=== PATIENT | male | born 1980 | race Caucasian/White ===

== ENCOUNTER 2017-01-27 08:59 | Emergency (ER) | payer OTHER ==
[~2017-01-27] VITALS: Ht 180.3 cm; Wt 86.2 kg
[2017-01-27 09:15] VITALS: BP 140/66
--- NOTE | 2017-01-27 09:56 | ED.ADGEN ---
Past Medical History Past Medical History: Other Additional Past Medical Histor: back pain Past Surgical History: Other Additional Past Surgical Histo: Lt shoulder, RLE Alcohol Use: Occasionally Drug Use: None Adult General Chief Complaint Chief Complaint: BACK PAIN OR INJURY HPI HPI Patient is a 36 year old man, with history of chronic low back pain after an injury in high school, who presents to the emergency department with a complaint of exacerbation of his lower back pain, with radicular symptoms into his right lower extremity. Patient states that he was at a baseball game several days ago, at that time he was seated for several hours, and when he stood up he was experiencing sharp shooting pains from his back down to his right lower extremity, along with some numbness and tingling. He denies any weakness, denies any difficult with bowel or bladder control, any chest pain or shortness of breath, any fevers or chills, any urinary complaints, any new injuries. Patient states that he was seen at his primary care provider's office yesterday, at that time he was prescribed hydrocodone and cyclobenzaprine, he states he has not taken his medications today as they are not effective. He states that he is currently being scheduled for an MRI, with plan to follow-up with Dr. Atkinson of neurosurgery who he has seen previously for additional evaluation. Review of Systems Review of Systems Constitutional: Denies fever or chills. [] Eyes: Denies change in visual acuity. [] HENT: Denies nasal congestion or sore throat. [] Respiratory: Denies cough or shortness of breath. [] Cardiovascular: Denies chest pain or edema. [] GI: Denies abdominal pain, nausea, vomiting, bloody stools or diarrhea. [] : Denies dysuria. [] Musculoskeletal: Complaining of lower back pain, specifically in the right side radiating to the right lower extremity. Integument: Denies rash. [] Neurologic: Denies headache, focal weakness or sensory changes. [] Endocrine: Denies polyuria or polydipsia. [] Lymphatic: Denies swollen glands. [] Psychiatric: Denies depression or anxiety. [] Current Medications Current Medications Current Medications Medications (Trade) Dose Ordered Sig/Marni Start Time Stop Time Status Last Admin Dose Admin Diazepam (Valium) 10 mg 1X ONCE 01/27/17 10:00 01/27/17 10:01 DC 01/27/17 10:00 10 MG Ketorolac Tromethamine (Toradol) 30 mg 1X ONCE 01/27/17 10:00 01/27/17 10:01 DC 01/27/17 10:00 30 MG Allergies Allergies Allergies Coded Allergies Type Severity Reaction Last Updated Verified No Known Drug Allergies 01/27/17 No Physical Exam Physical Exam Constitutional: Well developed, well nourished, no acute distress, non-toxic appearance. [] HENT: Normocephalic, atraumatic, bilateral external ears normal, oropharynx moist, no oral exudates, nose normal. [] Eyes: PERRLA, EOMI, conjunctiva normal, no discharge. [] Neck: Normal range of motion, no tenderness, supple, no stridor. [] Cardiovascular:Heart rate regular rhythm, no murmur, S1, S2, rubs or gallops. [] Lungs & Thorax: Bilateral breath sounds clear to auscultation, no wheezing, rhonchi, rales. No chest crepitus or tenderness. [] Abdomen: Bowel sounds normal, soft, no tenderness, no rebound, no guarding, no masses, no pulsatile masses. [] Skin: Warm, dry, no erythema, no rash. [] Back: No midline tenderness, no step-offs or deformities, patient with some tissue tension noted in the right sided paraspinal muscles the lumbar spine, with tenderness palpation of the piriformis region, reproducing symptoms radiating down into the right lower extremity, no CVA tenderness. [] Extremities: No tenderness, no cyanosis, no clubbing, ROM intact, no edema. [] Neurologic: Alert and oriented X 3, normal motor function, complaining of diminished sensation in the right lower extremity, exiting down to the foot in the lateral aspect, no skin changes noted, full range of motion, full strength, no focal deficits noted. [] Psychologic: Affect normal, judgement normal, mood normal. [] Current Patient Data Vital Signs Vital Signs Date Time Temp Pulse Resp B/P (MAP) Pulse Ox O2 Delivery O2 Flow Rate FiO2 01/27/17 09:15 97.9 75 18 100 Room Air 97.9 Lab Values Laboratory Tests Test 01/27/17 09:25 Urine Collection Type Unknown Urine Color Yellow Urine Clarity Clear Urine pH 5.5 Urine Specific [place] 1.020 Urine Protein Negative mg/dL (NEG-TRACE) Urine Glucose (UA) Negative mg/dL (NEG) Urine Ketones (Stick) Negative mg/dL (NEG) Urine Blood Negative (NEG) Urine Nitrite Negative (NEG) Urine Bilirubin Negative (NEG) Urine Urobilinogen Dipstick 0.2 mg/dL (0.2 mg/dL) Urine Leukocyte Esterase Negative (NEG) Urine RBC 0 /HPF (0-2) Urine WBC Occ /HPF (0-4) Urine Squamous Epithelial Cells Few /LPF Urine Bacteria 0 /HPF (0-FEW) Urine Mucus Mod /LPF EKG EKG Not indicated. [] Radiology/Procedures Radiology/Procedures Not indicated. [] Course & Med Decision Making Course & Med Decision Making Pertinent Labs and Imaging studies reviewed. (See chart for details) Patient with normal neurologic examination, without recent injury, no fevers or other concerning history, no indication for additional imaging at this time. He is currently being scheduled for an outpatient MRI of his primary care provider. I did offer the patient injection of Toradol and Valium in the emergency department to treat muscle spasm and pain, has not taken any medication at home prior to coming to the ED at this time. I did contact Dr. Atkinson's office, and spoke with Rajendra's nurse. Reviewed the patient's presentation and history. She was able to offer an appointment for February 07 1:45 PM in the afternoon for prompt follow-up. She is aware the patient is currently being scheduled for an MRI, request the patient contact the office after discharge to receive additional information pertaining to scheduling the appointment and obtaining necessary imaging and materials prior to his visit. Patient states he is feeling better, and states he is ready to go home. Patient ambulating without difficulty in the emergency department. Patient does have medications at home for pain, cyclobenzaprine, and hydrocodone, instructed to use his medications as directed by his primary care provider, also given clear and detailed return instructions with which he voiced understanding and agreement. Patient discharged home in stable condition with plan as above. Dragon Disclaimer Dragon Disclaimer This electronic medical record was generated, in whole or in part, using a voice recognition dictation system. Departure Impression: Primary Impression: Right-sided low back pain with right-sided sciatica Disposition: HOME, SELF-CARE Condition: IMPROVED MICHAEL VALLEJO DO Jan 27, 2017 09:56
[2017-01-27] MEDS ORDERED: KETOROLAC TROMETHAMINE 30 MG/ML INJ. IM ONE (10:00)
[2017-01-27 10:25] LABS: BILIRUBIN,URINE NEGATIVE (NEG); GLUCOSE,URINE NEGATIVE (NEG); NITRITE,URINE NEGATIVE (NEG); PH,URINE 5.5; PROTEIN,URINE NEGATIVE (NEG-TRACE); UROBILINOGEN,URINE 0.2 mg/dL (0.2 mg/dL)
[2017-01-27 10:36] LABS: BACTERIA,URINE 0 /HPF (0-FEW); RBC,URINE 0 /HPF (0-2); SQUAMOUS EPITHELIAL CELL,UR FEW /LPF; WBC,URINE OCC /HPF (0-4)
== END 2017-01-27 11:00 | disposition home or self-care (01) ==
LOC: ER 08:59
DX: M54.41 Lumbago with sciatica, right side (principal); G89.29 Other chronic pain
CPT/HCPCS: 81001; 96372; 99284; J1885; J3360

== ENCOUNTER → 2017-02-06 | Outpatient (CLI) | payer OTHER ==
[2017-01-27 09:15] VITALS: BP 140/66
[~2017-02-06] MED LIST: FINA5TAB4 PO; FLUT9.9S NS; IOHEXOL 180 MG/ML 10 ML VIAL. ONE; methylPREDNISolone ACETATE 40 MG/ML VIAL. ONE; methylPREDNISolone ACETATE 80 MG/ML VIAL. ONE
--- NOTE | 2017-02-07 04:05 | PAIN ---
DATE OF SERVICE: 02/06/2017 INITIAL CONSULTATION FOR PAIN CLINIC CHIEF COMPLAINT: Low back and right lower extremity pain. HISTORY OF PRESENT ILLNESS: The patient is a 36-year-old male who presents with history of pain for about 2 weeks or so. The pain beginning suddenly not a result of any specific injury or accident that he is aware of, though increasing in the low back and right lower extremity, radiating pain in the posterior gluteus, posterior thigh, posterior calf as well as the lateral anterior thigh, lateral anterior calf and into the foot with numbness and tingling constant pain as burning and radiating, has been improving slowly over time on its own. The patient reports it was bad enough initially and he was using a pair of crutches to get around for a few days. The pain began to subside slightly after that and it is now improving, but still significantly painful. The patient rates his pain as a 1-2 on a scale of 10, but it can be as high as a 6 or 7. The patient reports it is worse with standing on it and walking for prolonged periods, wakes him from sleep several times at night, about 5 times at least. He is taking some Tylenol PM, which seemed to help slightly. Does not affect his bowel or bladder control. The patient reports it does affect his ability to walk though he is not using any assistive devices currently. The patient has not had any physical therapies or other treatments or modalities. The patient is taking some nonsteroidal anti-inflammatories which do help, tried muscle relaxers, tried hydrocodone which have not helped. That was about a week ago or so. The patient reports his disability rating from 0 to 10, 10 being the worst, as a 1 with family and home responsibilities, 5 with recreation, 2 with social activity, 1 with occupation, sexual behavior and self care and 0 with life support activities. The patient did have an MRI scan of the lumbar spine showing retrolisthesis at L5-S1, L5-S1 disk protrusion, contacting the right S1 nerve root, central disk protrusion at L4-L5 and disk bulges at the levels without spinal stenosis or compression of the traversing nerve roots and left foraminal disk protrusion at L2-L3 contacting the exiting left L2 nerve root, left severe neural foraminal narrowing is seen at both levels. 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 PAST SURGICAL HISTORY: Other surgery include shoulder reconstruction in 1995, foot surgery in 2014 and right lower extremity compartment syndrome in 1994. FAMILY HISTORY: Significant for hypercholesterolemia and hypertension. SOCIAL HISTORY: The patient does not smoke, drinks 1-2 alcoholic drinks a week on an average. He is , lives with his spouse and 4 children at home. 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 REVIEW OF SYSTEMS: The patient's review of systems is positive for those items mentioned in the history of present illness. All systems reviewed and otherwise negative. It is complete, full and well documented on the patient's chart. PHYSICAL EXAMINATION: VITAL SIGNS: Today, the patient's blood pressure is 142/83, pulse 58, respirations 16, temperature is 98.1 degrees Fahrenheit. Height is 5 feet 11 inches, weighs 188 pounds. GENERAL: The patient is awake, alert, oriented, appropriate, very pleasant demeanor. HEENT: Head shows normocephalic, atraumatic. Extraocular movements are intact and symmetrical. Oral cavity shows mucous membranes moist and pink. Dentition is intact. NECK: Shows anterior throat supple without palpable lymphadenopathy noted. Swallow reflex is symmetrical. CHEST: Shows normal on inspection. Breath sounds are clear to auscultation bilaterally. HEART: Shows S1 and S2 clear. No murmurs auscultated. ABDOMEN: Soft, nontender, nondistended. No palpable organomegaly is noted. BACK: Shows spine grossly in the midline. Normal appearing thoracic kyphosis and lumbar lordotic curvature. No previous bruises, lesions, rashes or scars noted. Lumbar paraspinous musculature is symmetrical on inspection with palpation shows very mild tenderness in the lower lumbar distribution, but only diffusely without atrophy, hypertrophy or radiation. The patient's lower extremities showed deep tendon reflexes at 2+ in the patellar and 1+ tendo calcaneus tendons. Motor exam is strong with 5/5 dorsiflexion, extension, quadriceps and hamstring flexion. Peripheral pulses are 2+ posterior tibial and dorsalis pedis pulses. No peripheral edema is noted. No clubbing, no cyanosis. Lower extremities are warm and dry to touch, equal in color and appearance. Straight leg raise noted to be slightly positive on the right at about 40 degrees. Left side is negative. Gaenslen's and Ken's maneuvers are negative bilaterally as well. The patient is able to stand, stand on his toes without difficulty and walks with normal appearing gait, does not appear to favor his right or left lower extremity for a short walking distance in the office today and not using any assistive devices to ambulate. IMPRESSION: 1. This is a 36-year-old male with approximately 2-week history of increasing pain in low back, right lower extremity, now beginning to improve on its own, but still significant pain today. 2. MRI scan of lumbar spine as noted. PLAN: Options were discussed with the patient including conservative medical management, physical therapy and interventional technique. He would like to pursue interventional techniques. We discussed a lumbar epidural steroid injection using description as well as anatomical models to describe the procedure. Risks were then discussed including, but not limited to bleeding, infection, possibility of epidural hematoma and subsequent neurologic compromise, dural puncture, headaches, spinal cord and/or nerve damage, side effects of steroid medication and poor results regarding pain control. The patient understands and wishes to proceed. The patient will return to clinic in approximately 2 weeks for followup. He was counseled to return appointment, activity level and side effects to be aware of. DIAGNOSIS: Lumbar radiculopathy with lumbar herniated disk. PROCEDURE: Lumbar epidural steroid injection in translaminar approach at L5-S1 level using C-arm fluoroscopic guidance under sterile prep and drape using local anesthetic. MEDICATION INJECTED: 120 mg of Depo-Medrol plus 10 mL of preservative free normal saline and 2 mL of Isovue for contrast. CONDITION ON DISCHARGE: Stable. The patient tolerated the procedure well, had no complications. RILEY DE OLIVEIRA MD DR: CECIL/vargas JOB#: [id number] / [id number]
== END | disposition home or self-care (01) ==
LOC: PNCL 13:41
PROVIDERS: ATTEND Anesthesiology
DX: M51.16 Intervertebral disc disorders with radiculopathy, lumbar region (principal); M19.90 Unspecified osteoarthritis, unspecified site; Z82.49 Family history of ischemic heart disease and other diseases of the circulatory system; Z72.89 Other problems related to lifestyle
CPT/HCPCS: 62323; J1030; J1040

== ENCOUNTER → 2017-05-16 | Outpatient (CLI) | payer OTHER ==
--- NOTE | 2017-05-16 11:42 | PN ---
DATE: 05/16/2017 PROGRESS NOTE FOR PAIN CLINIC DIAGNOSES: Lumbar radiculopathy with lumbar herniated disk. HISTORY OF PRESENT ILLNESS: The patient is a 36-year-old male who returns for followup status post lumbar epidural steroid injection x 1 on 02/06/2017. The patient did very well with that, with about 70% improvement. Still some pain returning now, has been for the past 4-5 weeks in the right posterior gluteus, posterior thigh and posterior calf; sharp tight shooting pain, becoming more noticeable. The patient stayed very active, however, has been working hours, has been exercising, doing some stretching and some yoga as well. The patient reports his pain as a 9 on a scale of 10 at its worst, is a 7 on average and is a 1 on a scale of 10 at its least. The patient reports it is worse with standing, walking or changing positions and better with lying down or sitting. The patient reports he sleeps about 6-8 hours a night. The pain awakens him occasionally, but not every night. He can reposition and get rid of the pain. The patient reports no new motor or sensory deficits. No new bowel or bladder incontinence or other complaints. PHYSICAL EXAMINATION: VITAL SIGNS: Today, the patient's blood pressure is 124/78, pulse 68, respirations are 16 and temperature is 98.1 degrees Fahrenheit. Height is 5 feet 11 inches, weighs 188 pounds. GENERAL: The patient is awake, alert, oriented, appropriate, very pleasant demeanor. HEENT: Head is normocephalic, atraumatic. Extraocular movements are intact and symmetrical. Oral cavity, mucous membranes are moist and pink. Dentition intact. NECK: Shows anterior throat supple, without palpable lymphadenopathy noted. Swallow reflex is symmetrical. CHEST: Shows normal on inspection. Breath sounds are clear to auscultation bilaterally. HEART: Shows S1 and S2 clear. No murmurs auscultated. ABDOMEN: Soft, nontender and nondistended. BACK: Shows spine grossly in the midline. Lumbar paraspinous muscle shows symmetrical and normal on inspection. With palpation, it shows some very mild tenderness with deep palpation in the lower lumbar distribution only diffusely, without radiation or asymmetry. The patient has full rotational motion of the lumbar spine, both laterally as well as extension and flexion, without difficulty or pain involved. EXTREMITIES: The patient's lower extremities show deep tendon reflexes at 2+ patellar and 1+ tendo-calcaneus tendons. Motor exam is strong with 5/5 dorsiflexion, extension, quadriceps and hamstring flexion and are symmetrical. Peripheral pulses are 2+. No peripheral edema is noted. Options were discussed with the patient. The patient's old chart was reviewed as his current medication regimen updated. Current review of systems updated today as well. We will proceed with a second lumbar epidural steroid injection today with fluoroscopic guidance. Risks were again discussed including, but not limited to bleeding, infection, possibility of epidural hematoma and subsequent neurological compromise, dural punctures, headaches, spinal cord and/or nerve damage, side effects of steroid medication and poor results regarding pain control. The patient understands and wishes to proceed. The patient will return to clinic in approximately 2 weeks for followup. He was counseled on return appointment, activity level and side effects to be aware of. DIAGNOSIS: Lumbar radiculopathy with lumbar herniated disk. PROCEDURE: Lumbar epidural steroid injection in translaminar approach at L5-S1 level using C-arm fluoroscopic guidance under sterile prep and drape using local anesthetic. MEDICATION INJECTED: A total of 120 mg Depo-Medrol plus 10 mL of preservative-free normal saline and 2 mL of Isovue for contrast. CONDITION AT DISCHARGE: Stable. The patient tolerated the procedure well, had no complications. RILEY DE OLIVEIRA MD DR: CECIL/vargas JOB#: [id number] / [id number]
== END | disposition home or self-care (01) ==
LOC: PNCL 07:39
PROVIDERS: ATTEND Anesthesiology
DX: M51.16 Intervertebral disc disorders with radiculopathy, lumbar region (principal)
CPT/HCPCS: 62323; J1030; J1040

== ENCOUNTER → 2017-06-08 | Outpatient (CLI) | payer OTHER ==
--- NOTE | 2017-06-08 09:15 | PAIN ---
DATE OF SERVICE: 06/08/2017 DIAGNOSIS: Lumbar radiculopathy with lumbar herniated disk. HISTORY OF PRESENT ILLNESS: The patient is a 36-year-old male who returns for followup status post lumbar epidural steroid injection x 2. The patient reports overall about 70% improvement with the pain returning, taking several days after last injection for the pain to decrease in the low back and right lower extremity. Still aching and tight off and on intensity in the right low back and the right posterior gluteus, posterior thigh, rates a 9 on a scale of 10 at its worse and about a 6 on average, is a 1 at least and is a 1 today. The patient reports there is no new motor or sensory deficits, no new bowel or bladder incontinence, worse with standing and walking, prolonged sitting greater than about 40 minutes. Sleeps well at night, though it has been better with lying on his back, about 8 hours of sleep without the pain awakening him from rest. The patient reports no new motor or sensory deficits, no new bowel or bladder incontinence or other complaints. PHYSICAL EXAMINATION: VITAL SIGNS: The patient's blood pressure is 130/80, pulse 64, respirations are 18, temperature 98.2 degrees Fahrenheit, height is 5 feet 11 inches, weighs 190 pounds. GENERAL: The patient is awake, alert, oriented, appropriate, very pleasant demeanor. HEENT: Shows head normocephalic, atraumatic. Extraocular movements are intact and symmetrical. Oral cavity, mucous membranes are moist and pink. Dentition is intact. NECK: Shows anterior throat supple without palpable lymphadenopathy noted. Swallow reflex is symmetrical. CHEST: Shows normal on inspection. Breath sounds clear to auscultation bilaterally. HEART: Shows S1 and S2 clear. ABDOMEN: Soft, nontender, nondistended. No palpable organomegaly is noted. BACK: Shows spine grossly in the midline. Normal appearing thoracic kyphosis, lumbar lordotic curvature. Lumbar paraspinous musculature is symmetrical on inspection. With palpation shows only mild tenderness with palpation bilaterally in the lower lumbar distribution without asymmetry, without trigger points. The patient shows good rotational motion both laterally as well as extension and flexion of lumbar spine without pain reported. EXTREMITIES: Lower extremities show deep tendon reflexes 2+ in the patellar, 1+ tendo calcaneus tendons. Motor exam is strong with 5/5 dorsiflexion, extension, quadriceps and hamstring flexion equal bilaterally. Options were discussed with the patient and the patient's chart was reviewed as his current medication regimen updated. Current review of systems updated today as well. We will proceed with a third lumbar epidural steroid injection today with fluoroscopic guidance. Risks were again discussed including, but not limited to bleeding, infection, possibility of epidural hematoma and subsequent neurological compromise, dural punctures, headaches, spinal cord and/or nerve damage, side effects of steroid medication and poor results regarding pain control. The patient understands and wished to proceed. The patient will return to clinic in approximately 2 weeks for followup. He was counseled on return appointment, activity levels and side effects to be aware of. Also, we will have Physical therapy consulted once again as patient has a local physical therapy department that he has used for previous needs and will have them look at exercising, may be able to do on his own to help alleviate some of the pain and increase in flexibility. DIAGNOSIS: Lumbar radiculopathy with lumbar herniated disk. PROCEDURE: Lumbar epidural steroid injection in translaminar approach at L5-S1 using C-arm fluoroscopic guidance under sterile prep and drape using local anesthetic. Medication injected a total of 120 mg Depo-Medrol plus 10 mL of preservative-free normal saline, 2 mL of Isovue for contrast. CONDITION AT DISCHARGE: Stable. The patient tolerated procedure well, had no complications. RILEY DE OLIVEIRA MD DR: CECIL/vargas JOB#: [id number] / [id number]
== END | disposition home or self-care (01) ==
LOC: PNCL 08:10
PROVIDERS: ATTEND Anesthesiology
DX: M51.16 Intervertebral disc disorders with radiculopathy, lumbar region (principal)
CPT/HCPCS: 62323; J1030; J1040